=== PATIENT | female | born 1935 | race Caucasian/White ===

== ENCOUNTER → 2016-10-08 | Outpatient (CLI) | payer OTHER ==
[~2016-10-08] MED LIST: ATENOLOL 50MG T50 M1 PO; CALCIUM 500 +1 EAC5 PO; CENTRUM SILVER1 EAC4 PO; COUMADIN 5 MG TA5 M1; DIOVAN320 MG PO; EVISTA PO; LIPITOR10 MG PO; NORCO 5-325 TA1 EACH PO; NORVASC 5 MG TAB5 MG PO; POTASSIUM PO; PROPAFENONE 15150 MG PO
== END ==
LOC: RAD 01:16
DX: Z12.31 Encounter for screening mammogram for malignant neoplasm of breast (principal)

== ENCOUNTER → 2016-10-15 | Outpatient (CLI) | payer OTHER ==
--- NOTE | ~2016-10-15 | 2DMMODE ---
[place] [id number] [email or web address] [place] [address] 2 D/M-MODE ECHOCARDIOGRAM Name: KARINA SIMONS Room #: [facility] [id number] Admission: 10/15/16 Attend Phys: Dami Le MD Discharge: Date of : 31 Date of Service: 10/15/16 1006 Report #: [id number] THIS REPORT FOR: //name// APPROVED REPORT Study performed: 10/15/2016 09:19:38 EXAM: Comprehensive 2D, Doppler, and color-flow Echocardiogram Patient Location: Out-Patient Room #: Echo Status: routine Other Information Study Quality: Good Indications Atrial Fibrillation 2D Dimensions RVDd: 41.89 mm LVEF(%): 68.81 (>50%) IVSd: 9.41 (7-11mm) LVOT Diam: 16.87 (18-24mm) LVDd: 44.20 mm PWd: 9.98 (7-11mm) Ascending Ao: 22.49 (22-36mm) LVDs: 27.26 (25-40mm) Aortic Root: 23.25 mm IVC: 22.00 mm Hernandez's LVEF: 68.81 % Volumes Left Atrial Volume (Systole) Single Plane 4CH: 58.17 mL Single Plane 2CH: 48.71 mL LA ESV Index: 34.00 mL/m2 Aortic Valve AoV Peak Clinton.: 1.50 m/s AO Peak Gr.: 8.99 mmHg LVOT Max P.73 mmHg LVOT Max V: 1.39 m/s DANN Vmax: 2.07 cm2 Mitral Valve E/A Ratio: 1.1 MV Decel. Time: 213.16 ms MV E Max Clinton.: 1.10 m/s MV A Clinton.: 1.03 m/s MV PHT: 61.82 ms IVRT: 96.89 ms [facility] [place] [address] 2 D/M-MODE ECHOCARDIOGRAM Name: KRISTYNKARINA Room #: [facility]#: [id number] Admission: 10/15/16 Attend Phys: Dami Le MD Discharge: Date of : 31 Date of Service: 10/15/16 1006 Report #: [id number] Pulmonary Valve PV Peak Clinton.: 1.03 m/s PV Peak Gr.: 4.25 mmHg IN End Vmax: 1.23 m/s Pulmonary Vein P Vein S: 0.48 m/s P Vein A: 0.28 m/s P Vein D: 0.21 m/s P Vein A Dur.: 124.6 msec P Vein S/D Ratio: 2.29 Tricuspid Valve TR Peak Clinton.: 2.80 m/s RAP Estimate: 10.00 mmHg TR Peak Gr.: 31.33 mmHg Left Ventricle The left ventricle is normal size. There is normal LV segmental wall motion. There is normal left ventricular wall thickness. The left ventricular systolic function is normal. The left ventricular ejection fraction is within the normal range. LVEF is 60-65%. Grade II - pseudonormal filling dynamics. Right Ventricle Right ventricle is at the upper limits of normal. The right ventricular systolic function is normal. Atria Left atrium is mildly dilated. Right atrium is mildly dilated. Aortic Valve The Aortic valve is sclerotic. No aortic regurgitation is present. There is no aortic valvular stenosis. Mitral Valve The mitral valve is normal in structure. Mild mitral regurgitation. No evidence of mitral valve stenosis. Tricuspid Valve The tricuspid valve is normal in structure. There is no tricuspid valve stenosis. There is mild to moderate tricuspid regurgitation. The right atrial pressure is estimated at 10 mmHg. There is mild pulmonary hypertension. The estiamted PAP was 41 mmHg. Pulmonic Valve The pulmonary valve is normal in structure. Trace to mild pulmonic regurgitation. [address] [address] 2 D/M-MODE ECHOCARDIOGRAM Name: KARINA SIMONS [id number] Admission: 10/15/16 Attend Phys: Dami Le MD Discharge: Date of : 31 Date of Service: 10/15/16 1006 Report #: [id number] Great Vessels The aortic root is normal in size. IVC is dilated and collapses >50% with inspiration. Pericardium There is no pericardial effusion. <Conclusion> The left ventricle is normal size. The left ventricular systolic function is normal. Right ventricle is at the upper limits of normal. Left atrium is mildly dilated. Right atrium is mildly dilated. The Aortic valve is sclerotic. Mild mitral regurgitation. There is mild to moderate tricuspid regurgitation. The right atrial pressure is estimated at 10 mmHg. There is mild pulmonary hypertension. The estiamted PAP was 41 mmHg. <ELECTRONICALLY SIGNED> By: Dami Le MD 10/15/16 1006 100 05 Dami Le MD /INF
== END ==
LOC: CV 08:02
DX: I48.91 Unspecified atrial fibrillation (principal)

== ENCOUNTER → 2017-10-20 | Outpatient (CLI) | payer OTHER | LOC: RAD 03:59 | DX: Z12.31 Encounter for screening mammogram for malignant neoplasm of breast (principal) ==

== ENCOUNTER → 2018-10-25 | Outpatient (CLI) | payer OTHER | LOC: RAD 01:56 | DX: Z12.31 Encounter for screening mammogram for malignant neoplasm of breast (principal) ==

== ENCOUNTER → 2020-02-08 | Outpatient (CLI) | payer OTHER | LOC: SJCVCIMAG 09:51 | PROVIDERS: ATTEND Internal Medicine Cardiovascular Disease | DX: I08.8 Other rheumatic multiple valve diseases (principal); I27.20 Pulmonary hypertension, unspecified; I48.0 Paroxysmal atrial fibrillation; I49.49 Other premature depolarization; I10 Essential (primary) hypertension; E78.00 Pure hypercholesterolemia, unspecified; Z79.899 Other long term (current) drug therapy ==

== ENCOUNTER → 2020-03-13 | Outpatient (CLI) | payer OTHER | LOC: BC 10-27 10:22 | PROVIDERS: ATTEND Family Medicine | DX: Z12.31 Encounter for screening mammogram for malignant neoplasm of breast (principal) ==

== ENCOUNTER → 2020-09-26 | Outpatient (CLI) | payer OTHER | LOC: SJCVC 12:53 | PROVIDERS: ATTEND Internal Medicine Cardiovascular Disease | DX: R94.31 Abnormal electrocardiogram [ECG] [EKG] (principal); I45.10 Unspecified right bundle-branch block; I48.0 Paroxysmal atrial fibrillation; I10 Essential (primary) hypertension; E78.00 Pure hypercholesterolemia, unspecified; E78.5 Hyperlipidemia, unspecified; R60.9 Edema, unspecified; M19.90 Unspecified osteoarthritis, unspecified site; Z88.5 Allergy status to narcotic agent; Z79.01 Long term (current) use of anticoagulants; Z79.899 Other long term (current) drug therapy ==

== ENCOUNTER → 2021-03-14 | Outpatient (CLI) | payer OTHER | LOC: BC 09:45 | PROVIDERS: ATTEND Family Medicine | DX: Z12.31 Encounter for screening mammogram for malignant neoplasm of breast (principal) ==

== ENCOUNTER → 2021-03-31 | Outpatient (CLI) | payer OTHER | LOC: SJCVC 10:20 | PROVIDERS: ATTEND Internal Medicine Cardiovascular Disease | DX: R94.31 Abnormal electrocardiogram [ECG] [EKG] (principal); I45.10 Unspecified right bundle-branch block; I48.0 Paroxysmal atrial fibrillation; R60.9 Edema, unspecified; I10 Essential (primary) hypertension; E78.00 Pure hypercholesterolemia, unspecified; Z88.5 Allergy status to narcotic agent; Z79.899 Other long term (current) drug therapy; Z79.01 Long term (current) use of anticoagulants ==